=== PATIENT | male | born 1990 | race Caucasian/White ===

== ENCOUNTER 2016-12-12 18:59 | Emergency (ER) | payer BC ==
[~2016-12-12] VITALS: Ht 175.3 cm; Wt 92.6 kg
[2016-12-12 21:54] VITALS: BP 136/85
== END 2016-12-12 21:55 | disposition home or self-care (01) ==
LOC: EME 18:59 → RME 18:59
PROC: 2W3FX1Z Immobilization of Left Hand using Splint (ICD-10-PCS; principal; 2016-12-12)
DX: S09.90XA Unspecified injury of head, initial encounter (principal); S62.327A Displaced fracture of shaft of fifth metacarpal bone, left hand, initial encounter for closed fracture
CPT/HCPCS: 70450; 73130; 99281; 99284